=== PATIENT | male | born 1995 | race Caucasian/White ===

== ENCOUNTER 2016-04-03 16:07 | Emergency (ER) | payer OTHER ==
[2016-04-03] MEDS ORDERED: LORazepam 1 MG TAB As Ordered ONE ×2 (17:25→21:38)
[2016-04-03 17:43] LABS: MEAN CORPUSCULAR HEMOGLOBIN 29.3 pg (27.0-33.0); MEAN CORPUSCULAR VOLUME 86.3 fl (80.0-96.0); RED CELL DISTRIBUTION WIDTH 12.1 % (11.5-14.5); WHITE BLOOD COUNT 7.3 K/mm3 (4.0-10.0)
[2016-04-03 18:01] LABS: AMPHETAMINES LEVEL URINE NEGATIVE (NEGATIVE); BENZODIAZEPINES URINE POSITIVE (NEGATIVE); COCAINE METABOLITE URINE NEGATIVE (NEGATIVE); CONTROL LINE INT CTR LINE PRESENT; METHADONE URINE NEGATIVE (NEGATIVE); OPIATES URINE NEGATIVE (NEGATIVE); TRICYCLIC ANTIDEPRESS URINE NEGATIVE (NEGATIVE)
[2016-04-03 18:12] LABS: ALBUMIN 4.2 GM/DL (3.2-5.2); ALBUMIN/GLOBULIN RATIO 1.27 (1.00-1.93); ALKALINE PHOSPHATASE 77 U/L (45-117); ALT/SGPT 38 U/L (12-78); ANION GAP 10 MEQ/L (8-16); AST/SGOT 73 U/L (15-37); BILIRUBIN,DIRECT < 0.1 MG/DL (0.0-0.2); BILIRUBIN,TOTAL 0.3 MG/DL (0.2-1.0); BLOOD UREA NITROGEN 10 MG/DL (7-18); CALCIUM LEVEL 9.1 MG/DL (8.5-10.1); CARBON DIOXIDE LEVEL 29 MEQ/L (21-32); CHLORIDE LEVEL 102 MEQ/L (98-107); CREATININE FOR GFR 1.01 MG/DL (0.70-1.30); GLUCOSE, FASTING 95 MG/DL (70-105); POTASSIUM SERUM 3.9 MEQ/L (3.5-5.1); SODIUM LEVEL 141 MEQ/L (136-145); TOTAL PROTEIN 7.5 GM/DL (6.4-8.2)
--- NOTE | 2016-04-03 22:02 | EDDOCDS ---
Nurse's Notes [facility] Name: Scooby Chase Age: 20 yrs Sex: Male : 1995 Arrival Date: 04/03/2016 Time: 16:[address] [facility] Private MD: Other - Complete Info On Cds Diagnosis: Opioid dependence with withdrawal;Major depressive disorder, recurrent Presentation: 04/03 16:12 Presenting complaint: Patient states: "I've been home on leave and I've been struggling jc4 with an Oxycodone withdrawal. I did overdose on Xanax (not prescribed to him) on 04/01. Allegedly took 35 Xanax 0.5 mg on 04/01, because "I couldn't get any Oxy where I was so I threw a fit of rage at my family so I decided to down an entire bottle. My family took me to get admitted for this issue in [place], but I refused". Pt states, "I'm starting to feel a little sick again, a little loopy, a little nauseous". Adult Sepsis Screening: The patient does not have new or worsening altered mentation. Patient's respiratory rate is less than 22. Systolic blood pressure is greater than 100. Patient has a qSOFA score of 0- Negative Sepsis Screen. Suicide/Homicide risk assessment- The patient reports that he/she has not been admitted to an inpatient mental health facility in the last 30 days. The patient reports that he/she has a recent or current history of substance abuse. The patient reports that he/she has no prior history of suicide attempt and/or organized plan. The patient reports that he/she has not experienced a significant life altering event in the last 30 days. The patient reports that he/she has adequate social support. The patient reports he/she has significant chronic medical condition(s). 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 Transition of care: patient was not received from another setting of care. 16:12 Acuity: BATSHEVA Level 3 jc4 16:12 Method Of Arrival: Walkin/Carried/Asstd jc4 16:18 Presenting complaint: Patient states: "I took 1 Suboxone today that my family gave me jc4 to help me get over my sickness". Triage Assessment: 16:17 General: Appears in no apparent distress. jc4 16:18 Pain: Denies pain. Pt Declines HIV testing. jc4 Historical: - Allergies: no known allergies; - Home Meds: 1. Singulair 10 mg Oral tab 1 tab once daily (Last dose: Unknown) 2. ProAir HFA 90 mcg/actuation inhalation HFAA 1 puff every 4 hours as needed (Last dose: Unknown) - PMHx: Asthma; - PSHx: none; - Social history: Smoking status: Chewing Tobacco No barriers to communication noted, The patient speaks fluent Indian. - Family history: Not pertinent. - : The pt / caregiver states he / she is not on anticoagulants. Home medication list is obtained from the patient. - Exposure Risk Screening:: None identified. Screenin:59 Screening information is obtained from the patient. Fall risk: No risks identified. ml6 Assistance ADL's: requires no assistance with activities of daily living. Abuse/DV Screen: The patient / caregiver reports he/she is: not in a situation that causes fear, pain or injury. Nutritional screening: No deficits noted. Advance Directives: Currently, there is no health care proxy. home support is adequate. Assessment: 16:15 General: Appears in no apparent distress, Behavior is appropriate for age, cooperative. ml6 Pain: Denies pain. Neurological: No deficits noted. Level of Consciousness is awake, alert, Oriented to person, place, time. Cardiovascular: No deficits noted. Capillary refill < 3 seconds is brisk in bilateral fingers toes Heart tones S1 S2 present. Respiratory: No deficits noted. Airway is patent Respiratory effort is even, unlabored, Respiratory pattern is regular, symmetrical, Breath sounds are clear bilaterally. GI: No deficits noted. Abdomen is flat, non- distended Bowel sounds present X 4 quads. 17:05 Reassessment: Patient appears in no apparent distress at this time. Patient denies pain ml6 at this time. General:. 18:01 Reassessment: Patient appears in no apparent distress at this time. Patient denies pain ml6 at this time. Patient states feeling better. patient anxious, asking for his skoal, discussed the tobacco policy with patient and offered nicotine patch, patient refused . 19:51 General: Appears in no apparent distress, comfortable, Behavior is appropriate for age, slm cooperative, quiet. General: pt sitting on stretcher chain of command in room security observing . Neurological: Level of Consciousness is awake, alert, obeys commands. Respiratory: Airway is patent Respiratory effort is even, unlabored. 21:01 General: Appears in no apparent distress, comfortable, Behavior is cooperative. slm General: pt talking on phone Chain of Command remains in room security observing . Respiratory: Airway is patent Respiratory effort is even, unlabored. Derm: Skin is pink, warm & dry. 21:59 General: Appears in no apparent distress, comfortable, Behavior is appropriate for age, slm cooperative, quiet. General: pt d/c home with Chain of command . Respiratory: Airway is patent Respiratory effort is even, unlabored. Derm: Skin is pink, warm & dry. Mental Health Eval: 20:23 Mental health consult is initiated at 20:10. 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 [facility] Behavioral Health: The patient is not an established patient of [facility] Behavioral Health. Referral Information: Evaluation referral is generated by [facility] personnel , Corporal Nina. The patient was referred for evaluation because Pt. was home on leave in [place], started withdrawing from Opiate addiction and took overdose of Xanax on 04/01/2016 because he did not have any other substance to take away the pain he was feeling. Pt. mother notified pt. LEATHA and pt. LEATHA picked him up and brought him to ER for evaluation.. Subjective: The patients chief complaint is Pt. reports he has had an opiate addiction worsening over last six months, stating that he was prescribed Percocet after wisdom teeth removal that resulted in a fractured jaw. Pt. reports that since then he has also used cocaine and has mixed other drugs. He states he took Suboxone today and last two days to help him to feel better but that it is not working. Pt. reports that two weeks ago his girlfriend broke up with him because of his drug use and because he has been acting like a monster towards everyone because of this addiction. He reports since break up , he has used even more drugs than usual. When asked if the overdose of Xanax that he took was an attempt to kill himself, he stated he did not know. Pt. also reports that he is very unhappy in the and that it was a big mistake, wishing he had never joined. Pt. states he wants to be clean and not feel this way anymore. He denies SI.. 20:59 Subjective: The patients chief complaint is Pt. does deny SI at this time.. Delusions ms are denied. Patient's mood is appropriate. Hallucinations are denied. Mental Health history: no relevant mental health problems or treatments. Mental Health Admissions: None. Current Outpatient Mental Health Services: None. Current living environment is The patient [facility]. Patient presents to Emergency Department with the following symptoms within the past 2 weeks: anger, drug abuse. Substance abuse: Patient uses beer, 3 daily. Patient uses cocaine, Patient uses marijuana Last use was 1 days ago. Patient uses opiates. Mental status exam: Patients appearance is unkempt, Patient's behavior is cooperative, Speech is normal. Affect is appropriate. Mood is anxious. Hallucinations are denied. Appetite is normal. Memory is good. Energy level is normal. Content of thought is normal. Thought process is intact. Cognitive level is oriented to person, place, time and situation Patient's insight is good. Judgement is fair. Rapport with interviewer is good. Suicidal Ideation is denied. Homicidal ideation is denied. Disposition: Medically cleared for disposition by Conner Riddle DO Psychiatric Consult is performed by phone with Dr Fritz Prather. 21:21 Narrative: Per , pt. to be under observation by [facility] personnel for ms until seen at [facility]. Cpl. Nina aware and in agreement. Vital Signs: 16:10 BP 162 / 89; Pulse 97; Resp 18 S; Temp 97.5(O); Pulse Ox 100% on R/A; Weight 77.11 kg gr2 (R); Height 5 ft. 11 in. (180.34 cm) (R); Pain 2/10; 19:52 BP 137 / 84; Pulse 86; Resp 16; Temp 96.1(T); Pulse Ox 98% on R/A; Pain 0/10; slm 21:58 BP 140 / 97; Pulse 72; Resp 18; Pulse Ox 100% on R/A; Pain 0/10; slm 16:10 Body Mass Index 23.71 (77.11 kg, 180.34 cm) gr2 Vitals: 16:10 Log In Time: April 03, 2016 at 16:10. gr2 16:11 RN notified that patient meets Red Flag criteria. gr2 ED Course: 16:09 Patient visited by Allie Pitt. gr2 16:09 Other - Complete Info On Cds is Private Physician. gr2 16:09 Patient moved to Waiting gr2 16:11 Patient visited by Allie Pitt. gr2 16:11 Patient moved to Pre RCE gr2 16:16 Triage Initiated jc4 16:30 Patient moved to [facility] jc4 16:31 Ivonne Brock MD is Attending Physician. ml 16:31 Patient visited by Ivonne Brock MD. ml 16:56 Patient visited by Cuauhtemoc Quiñones. dpm 16:56 Pt greeted and oriented to ED. Patient advised of names of staff involved in care, dpm location of call araya, wait times and NPO status. Patient has correct armband on for positive identification. Placed in gown. Placed in psych safe attire. Bed in low position. Security observing. Property removed, inventory done, secured in belongings bag- placed in locked locker. Placed in locker 2. Psych Safety Check: Location: Psych Room. Visual Assessment: Cooperative. 17:11 Patient visited by Cuauhtemoc Quiñones. dpm 17:26 Patient visited by Cuauhtemoc Quiñones. dpm 17:27 EKG done. (by ED staff). Reviewed by Ivonne Brock MD. dem1 17:28 Patient visited by Lillie Chopra. dem1 17:35 Acetaminophen Level Sent. nb2 17:35 Basic Metabolic Profile Sent. nb2 17:35 Complete Blood Count Sent. nb2 17:35 Drug Eval Toxicology ED Only Sent. nb2 17:35 Ethyl Alcohol (ethanol) Sent. nb2 17:36 Liver Profile Sent. nb2 17:36 Salicylate Level Sent. nb2 17:36 Thyroid Stimulating Hormone Sent. nb2 17:42 Patient visited by Cuauhtemoc Quiñones. dpm 17:59 The patient / caregiver is instructed regarding the plan of care and ED course. ml6 18:16 Patient visited by Conner Gamboa RN. ml6 18:16 Patient visited by Cuauhtemoc Quiñones. dpm 18:33 Patient visited by Cuauhtemoc Quiñones. dpm 18:45 Patient visited by Cuauhtemoc Quiñones. dpm 18:58 Gregoria Walter LPN is Primary Nurse. slm 18:59 Patient visited by Cuauhtemoc Quiñones. dpm 19:20 Attending Physician role handed off by Ivonne Brock MD mm11 19:20 Conner Riddle DO is Attending Physician. mm11 19:21 Patient visited by Cuauhtemoc Quiñones. dpm 19:44 Patient visited by Teo Candelaria. tr 19:52 Patient visited by Gregoria Walter LPN. slm 20:00 Patient visited by Teo Candelaria. tr 20:14 Patient visited by Teo Candelaria. tr 20:14 [facility] Payment Agreement was scanned into [employer] and attached to record. gjb 20:38 Patient visited by Teo Candelaria. tr 20:45 Patient visited by Teo Candelaria. tr 21:02 Patient visited by Gregoria Walter LPN. slm 21:31 Patient visited by Teo Candelaria. tr 21:35 Alyson Louis [facility] is Referral Physician. mm11 21:48 Patient visited by Teo Candelaria. tr 22:00 Patient visited by Teo Candelaria. tr 22:00 No IV's were initiated during this patient's visit. No procedures done that require slm assistance. 22:01 Patient visited by Gregoria Walter LPN. slm Administered Medications: 17:36 Drug: LORazepam 1 mg [lorazepam 1 mg tablet (1 tabs)] Route: PO; ml6 22:01 Follow up: Response: Anxiety is improved slm 21:39 Not Given (Physician Discretion): LORazepam 1 mg PO once mm11 Order Results: Lab Order: Acetaminophen Level; SPEC'M 04/03/16 17:30 Test: ACETAMINOPHEN LEVEL; Value: < 2.0; Range: 10.0-30.0; Abnormal: Below low normal; Units: UG/ML; Status: F Lab Order: Basic Metabolic Profile; SPEC'M 04/03/16 17:30 Test: GLUCOSE, FASTING; Value: 95; Range: 70-105; Units: MG/DL; Status: F Test: BLOOD UREA NITROGEN; Value: 10; Range: 7-18; Units: MG/DL; Status: F Test: CREATININE FOR GFR; Value: 1.01; Range: 0.70-1.30; Units: MG/DL; Status: F Test: SODIUM LEVEL; Value: 141; Range: 136-145; Units: MEQ/L; Status: F Test: POTASSIUM SERUM; Value: 3.9; Range: 3.5-5.1; Units: MEQ/L; Status: F Test: CHLORIDE LEVEL; Value: 102; Range: 98-107; Units: MEQ/L; Status: F Test: CARBON DIOXIDE LEVEL; Value: 29; Range: 21-32; Units: MEQ/L; Status: F Test: ANION GAP; Value: 10; Range: 8-16; Units: MEQ/L; Status: F Test: CALCIUM LEVEL; Value: 9.1; Range: 8.5-10.1; Units: MG/DL; Status: F Lab Order: Complete Blood Count; SPEC'M 04/03/16 17:30 Test: WHITE BLOOD COUNT; Value: 7.3; Range: 4.0-10.0; Units: K/mm3; Status: F Test: RED BLOOD COUNT; Value: 4.90; Range: 4.30-6.10; Units: M/mm3; Status: F Test: HEMOGLOBIN; Value: 14.4; Range: 14.0-18.0; Units: g/dl; Status: F Test: HEMATOCRIT; Value: 42.3; Range: 42.0-52.0; Units: %; Status: F Test: MEAN CORPUSCULAR VOLUME; Value: 86.3; Range: 80.0-96.0; Units: fl; Status: F Test: MEAN CORPUSCULAR HEMOGLOBIN; Value: 29.3; Range: 27.0-33.0; Units: pg; Status: F Test: MEAN CORPUSCULAR HGB CONC; Value: 34.0; Range: 32.0-36.5; Units: g/dl; Status: F Test: RED CELL DISTRIBUTION WIDTH; Value: 12.1; Range: 11.5-14.5; Units: %; Status: F Test: PLATELET COUNT, AUTOMATED; Value: 182; Range: 150-450; Units: k/mm3; Status: F Lab Order: Drug Eval Toxicology ED Only; SPEC'M 04/03/16 17:28 Test: AMPHETAMINES LEVEL URINE; Value: NEGATIVE; Range: NEGATIVE; Status: F Test: BARBITURATES URINE; Value: NEGATIVE; Range: NEGATIVE; Status: F Test: BENZODIAZEPINES URINE; Value: POSITIVE; Range: NEGATIVE; Abnormal: Above high normal; Status: F Test: CANNABINOIDS URINE; Value: POSITIVE; Range: NEGATIVE; Abnormal: Above high normal; Status: F Test: COCAINE METABOLITE URINE; Value: NEGATIVE; Range: NEGATIVE; Status: F Test: METHADONE URINE; Value: NEGATIVE; Range: NEGATIVE; Status: F Test: OPIATES URINE; Value: NEGATIVE; Range: NEGATIVE; Status: F Test: TRICYCLIC ANTIDEPRESS URINE; Value: NEGATIVE; Range: NEGATIVE; Status: F Test Note: ; FALSE POSITIVE RESULTS CAN BE CAUSED BY THE USE OF PANTOPRAZOLE (PROTONIX). Lab Order: Ethyl Alcohol (ethanol); SPEC'M 04/03/16 17:30 Test: ETHYL ALCOHOL (ETHANOL); Value: < 0.003; Range: 0.000-0.010; Units: %; Status: F Lab Order: Liver Profile; SPEC'M 04/03/16 17:30 Test: AST/SGOT; Value: 73; Range: 15-37; Abnormal: Above high normal; Units: U/L; Status: F Test: ALT/SGPT; Value: 38; Range: 12-78; Units: U/L; Status: F Test: ALKALINE PHOSPHATASE; Value: 77; Range: 45-117; Units: U/L; Status: F Test: BILIRUBIN,TOTAL; Value: 0.3; Range: 0.2-1.0; Units: MG/DL; Status: F Test: BILIRUBIN,DIRECT; Value: < 0.1; Range: 0.0-0.2; Units: MG/DL; Status: F Test: TOTAL PROTEIN; Value: 7.5; Range: 6.4-8.2; Units: GM/DL; Status: F Test: ALBUMIN; Value: 4.2; Range: 3.2-5.2; Units: GM/DL; Status: F Test: ALBUMIN/GLOBULIN RATIO; Value: 1.27; Range: 1.00-1.93; Status: F Lab Order: Salicylate Level; SPEC'M 04/03/16 17:30 Test: SALICYLATE LEVEL; Value: < 1.7; Range: 5.0-30.0; Abnormal: Below low normal; Units: MG/DL; Status: F Lab Order: Thyroid Stimulating Hormone; SPEC'M 04/03/16 17:30 Test: THYROID STIMULATING HORMONE; Value: 2.420; Range: 0.463-3.98; Units: uIU/ML; Status: F Outcome: 21:36 Discharge ordered by Provider. mm11 21:59 Discharge Assessment: Patient awake, alert and oriented x 3. No cognitive and/or slm functional deficits noted. Patient verbalized understanding of disposition instructions. patient administered narcotics - no. The following High Risk Discharge criteria are identified: Yes, pt seen by and PSA. Discharged to home with chain of command. Condition: good. Discharge instructions given to patient, Instructed on discharge instructions, follow up and referral plans. Demonstrated understanding of instructions, Pt was receptive of discharge instructions/ teaching. No special radiology studies were completed. 22:01 Patient left the ED. slm Signatures: Ivonne Brock MD MD ml Stone, Mary, BIANCA PSA Teo Denis Matthew, DO DO mm11 Conner Gamboa, RN RN ml6 Denise Patel RN RN jc4 Lillie Chopra1 Cuauhtemoc Quiñones dpAllie Catherine gr2 Gregoria Walter LPN LPN slm Beck, Gabriela gjb Baart, Nicole nb2 Corrections: (The following items were deleted from the chart) 21:05 20:23 Subjective: The patients chief complaint is Pt. reports he has had an opiate ms addiction worsening over last six months, stating that he was prescribed Percocet after wisdom teeth removal that resulted in a fractured jaw. Pt. reports that since then he has also used cocaine and has mixed other drugs. He states he took Suboxone today and last two days to help him to feel better but that it is not working. Pt. reports that two weeks ago his girlfriend broke up with him because of his drug use and because he has been acting like a monster towards everyone because of this addiction. He reports since break up , he has used even more drugs than usual. When asked if the overdose of Xanax that he took was an attempt to kill himself, he stated he did not know. Pt. also reports that he is very unhappy in the and that it was a big mistake, wishing he had never joined. Pt. is unable to contract for safety, stating he does not know what he will do if he does not get some help. . ms 21:17 20:23 Subjective: The patients chief complaint is Pt. reports he has had an opiate ms addiction worsening over last six months, stating that he was prescribed Percocet after wisdom teeth removal that resulted in a fractured jaw. Pt. reports that since then he has also used cocaine and has mixed other drugs. He states he took Suboxone today and last two days to help him to feel better but that it is not working. Pt. reports that two weeks ago his girlfriend broke up with him because of his drug use and because he has been acting like a monster towards everyone because of this addiction. He reports since break up , he has used even more drugs than usual. When asked if the overdose of Xanax that he took was an attempt to kill himself, he stated he did not know. Pt. also reports that he is very unhappy in the and that it was a big mistake, wishing he had never joined. Pt. states he wants to be clean and not feel this way anymore.. ms MTDD
--- NOTE | 2016-04-03 22:02 | EDDOCDS ---
Physician Documentation [facility] Name: Scooby Chase Age: 20 yrs Sex: Male : 1995 Arrival Date: 04/03/2016 Time: 16:07 Bed U2 Private MD: Other - Complete Info On Cds Disposition: 04/03/16 21:36 Discharged to Home/Self Care. Impression: Opioid dependence with withdrawal, Major depressive disorder, recurrent. - Condition is Stable. - Discharge Instructions: Chemical Dependency, Opioid Withdrawal, Opioid Use Disorder. - Medication Reconciliation, Local Pharmacy Hours form. - Follow up: Alyson Louis [facility]; When: 1 - 2 days; Reason: Continuance of care. - Problem is an ongoing problem. - Symptoms have improved. - Notes: FOLLOW UP WITH [facility] DIRECTED BY CHAIN OF COMMAND ON TUESDAY. Historical: - Allergies: no known allergies; - Home Meds: 1. Singulair 10 mg Oral tab 1 tab once daily (Last dose: Unknown) 2. ProAir HFA 90 mcg/actuation inhalation HFAA 1 puff every 4 hours as needed (Last dose: Unknown) - PMHx: Asthma; - PSHx: none; - Social history: Smoking status: Chewing Tobacco No barriers to communication noted, The patient speaks fluent Surinamese. - Family history: Not pertinent. - : The pt / caregiver states he / she is not on anticoagulants. Home medication list is obtained from the patient. - Exposure Risk Screening:: None identified. Vital Signs: 04/03 16:10 BP 162 / 89; Pulse 97; Resp 18 S; Temp 97.5(O); Pulse Ox 100% on R/A; Weight 77.11 kg / gr2 170 lbs (R); Height 5 ft. 11 in. (180.34 cm) (R); Pain 2/10; 19:52 BP 137 / 84; Pulse 86; Resp 16; Temp 96.1(T); Pulse Ox 98% on R/A; Pain 0/10; slm 21:58 BP 140 / 97; Pulse 72; Resp 18; Pulse Ox 100% on R/A; Pain 0/10; slm 16:10 Body Mass Index 23.71 (77.11 kg, 180.34 cm) gr2 MDM: 16:39 Consult PFS/PSA/[employer] T[employer] Curer ordered. ml 16:39 Consult PFS/PSA/[employer] Curer: Patient's case requires discussion with on-call ml Psychiatrist ordered. 16:39 PSA/PFS to call Nursing Drawer In Hand, to enter patient data on [place] Safe Act if patient ml involuntarily admitted or transferred for SI or HI ordered. 16:39 Confirm accurate psychiatric medication list and times of last dosage ordered. ml 16:39 Detain Pt Until Medically/PFS Cleared ordered. ml 16:39 Call Poison Control ordered. ml 16:39 LORazepam 1 mg PO once ordered. ml 16:39 Acetaminophen Level Ordered. EDMS 16:39 Basic Metabolic Profile Ordered. EDMS 16:39 Complete Blood Count Ordered. EDMS 16:39 Drug Eval Toxicology ED Only Ordered. EDMS 16:39 Ethyl Alcohol (ethanol) Ordered. EDMS 16:39 Liver Profile Ordered. EDMS 16:40 Salicylate Level Ordered. EDMS 16:40 Thyroid Stimulating Hormone Ordered. EDMS 16:40 ECG WITH READING ER PHYS+CARDIAG ordered. EDMS 17:41 REGULAR DIET PLASTIC SONI+DIET ordered. EDMS 18:47 Financial registration complete. gjb 19:08 Acetaminophen Level Reviewed. ml 19:08 Drug Eval Toxicology ED Only Reviewed. ml 19:08 Liver Profile Reviewed. ml 19:08 Salicylate Level Reviewed. ml 19:08 Basic Metabolic Profile Reviewed. ml 19:08 Complete Blood Count Reviewed. ml 19:08 Ethyl Alcohol (ethanol) Reviewed. ml 19:08 Thyroid Stimulating Hormone Reviewed. ml 19:34 Consult PFS/PSA/[employer] Curer complete. ms 19:34 Consult PFS/PSA/Rub[employer] Curer: Patient's case requires discussion with on-call ms Psychiatrist complete. 19:34 PSA/PFS to call Nursing Drawer In Hand, to enter patient data [place] Safe [place] if patient ms involuntarily admitted or transferred for SI or HI complete. 20:14 [facility] Payment Agreement was scanned into [employer] and attached to record. gjb 21:35 LORazepam 1 mg PO once ordered. mm11 Administered Medications: 17:36 Drug: LORazepam 1 mg [lorazepam 1 mg tablet (1 tabs)] Route: PO; ml6 22:01 Follow up: Response: Anxiety is improved slm 21:39 Not Given (Physician Discretion): LORazepam 1 mg PO once mm11 Signatures: Dispatcher [employer] EDMS Ivonne Brock MD MD ml Stone, Mary, PSA PSA ms Venkatesh Conner, DO DO mm11 Denise Patel, KEVAN RN jc4 Gregoria Walter LPN LPN Magdalena Mccormick Matthew RN ml6 The chart was reviewed and I authenticate all verbal orders and agree with the evaluation and treatment provided.Attachments: 20:14 [facility] Payment Agreement aiyana MTDD
--- NOTE | 2016-04-03 23:06 | ECGEPIP ---
Stationary ECG Study [facility] - ED Test Date: 2016-04-03 Pat Name: KOLBY QUEZADA Department: Room: - Gender: M [employer] [place] Shearer: saeed : 1995 Requested By: Ivonne Brock Order Number: [id number] Reading MD: Mehdi Duarte Measurements Intervals [place] Rate: 61 P: 61 [place]: 130 QRS: 38 QRSD: 98 T: -1 QT: 388 QTc: 392 Interpretive Statements SINUS RHYTHM WITH OCCASIONAL SUPRAVENTRICULAR PREMATURE COMPLEXES NSTTW ABNORMALITIES NO PRIORS Electronically Signed On 04-03-2016 23:05:32 EST by Mehdi Duarte
--- NOTE | 2016-04-06 11:53 | EDDOCDS ---
Physician Documentation [facility] Name: Scooby Chase Age: 20 yrs Sex: Male : 1995 Arrival Date: 04/03/2016 Time: 16:07 Bed U2 Private MD: Other - Complete Info On Cds Disposition: 04/03/16 21:36 Discharged to Home/Self Care. Impression: Opioid dependence with withdrawal, Major depressive disorder, recurrent. - Condition is Stable. - Discharge Instructions: Chemical Dependency, Opioid Withdrawal, Opioid Use Disorder. - Medication Reconciliation, Local Pharmacy Hours form. - Follow up: Alyson Louis [facility]; When: 1 - 2 days; Reason: Continuance of care. - Problem is an ongoing problem. - Symptoms have improved. - Notes: FOLLOW UP WITH [facility] DIRECTED BY CHAIN OF COMMAND ON TUESDAY. Historical: - Allergies: no known allergies; - Home Meds: 1. Singulair 10 mg Oral tab 1 tab once daily (Last dose: Unknown) 2. ProAir HFA 90 mcg/actuation inhalation HFAA 1 puff every 4 hours as needed (Last dose: Unknown) - PMHx: Asthma; - PSHx: none; - Social history: Smoking status: Chewing Tobacco No barriers to communication noted, The patient speaks fluent Ukrainian. - Family history: Not pertinent. - : The pt / caregiver states he / she is not on anticoagulants. Home medication list is obtained from the patient. - Exposure Risk Screening:: None identified. Vital Signs: 04/03 16:10 BP 162 / 89; Pulse 97; Resp 18 S; Temp 97.5(O); Pulse Ox 100% on R/A; Weight 77.11 kg / gr2 170 lbs (R); Height 5 ft. 11 in. (180.34 cm) (R); Pain 2/10; 19:52 BP 137 / 84; Pulse 86; Resp 16; Temp 96.1(T); Pulse Ox 98% on R/A; Pain 0/10; slm 21:58 BP 140 / 97; Pulse 72; Resp 18; Pulse Ox 100% on R/A; Pain 0/10; slm 16:10 Body Mass Index 23.71 (77.11 kg, 180.34 cm) gr2 MDM: 16:39 Consult PFS/PSA/Maintenance Job Titles ordered. ml 16:39 Consult PFS/PSA/Maintenance Job Titles: Patient's case requires discussion with on-call ml Psychiatrist ordered. 16:39 PSA/PFS to call Nursing Load Dropper, to enter patient data on [place] Safe [place] if patient ml involuntarily admitted or transferred for SI or HI ordered. 16:39 Confirm accurate psychiatric medication list and times of last dosage ordered. ml 16:39 Detain Pt Until Medically/PFS Cleared ordered. ml 16:39 Call Poison Control ordered. ml 16:39 LORazepam 1 mg PO once ordered. ml 16:39 Acetaminophen Level Ordered. EDMS 16:39 Basic Metabolic Profile Ordered. EDMS 16:39 Complete Blood Count Ordered. EDMS 16:39 Drug Eval Toxicology ED Only Ordered. EDMS 16:39 Ethyl Alcohol (ethanol) Ordered. EDMS 16:39 Liver Profile Ordered. EDMS 16:40 Salicylate Level Ordered. EDMS 16:40 Thyroid Stimulating Hormone Ordered. EDMS 16:40 ECG WITH READING ER PHYS+CARDIAG ordered. EDMS 17:41 REGULAR DIET PLASTIC SONI+DIET ordered. EDMS 18:47 Financial registration complete. gjb 19:08 Acetaminophen Level Reviewed. ml 19:08 Drug Eval Toxicology ED Only Reviewed. ml 19:08 Liver Profile Reviewed. ml 19:08 Salicylate Level Reviewed. ml 19:08 Basic Metabolic Profile Reviewed. ml 19:08 Complete Blood Count Reviewed. ml 19:08 Ethyl Alcohol (ethanol) Reviewed. ml 19:08 Thyroid Stimulating Hormone Reviewed. ml 19:34 Consult PFS/PSA/Maintenance Job Titles complete. ms 19:34 Consult PFS/PSA/Maintenance Job Titles: Patient's case requires discussion with on-call ms Psychiatrist complete. 19:34 PSA/PFS to call Nursing Load Dropper, to enter patient data [place] Safe [place] if patient ms involuntarily admitted or transferred for SI or HI complete. 20:14 [facility] Payment Agreement was scanned into [employer] and attached to record. gjb 21:35 LORazepam 1 mg PO once ordered. mm11 04/04 07:59 T-Sheet-- Draft Copy was scanned into [employer] and attached to record. seh 10:40 ECG/EKG was scanned into [employer] and attached to record. gb Administered Medications: 04/03 17:36 Drug: LORazepam 1 mg [lorazepam 1 mg tablet (1 tabs)] Route: PO; ml6 22:01 Follow up: Response: Anxiety is improved [facility] 21:39 Not Given (Physician Discretion): LORazepam 1 mg PO once mm11 Signatures: Dispatcher [employer] EDIvonne Marlow MD MD ml Stone, Nilsa, PSA PSA ms Rashaad, Lena, Reg Reg Conner Diehl, DO DO mm11 Denise Patel RN RN jc4 Gregoria Walter,SAMPLE TESTER GRINDER SAMPLE TESTER GRINDER Magdalena Mccormick Sarah seh Lowe, Matthew RN ml6 The chart was reviewed and I authenticate all verbal orders and agree with the evaluation and treatment provided.Attachments: 20:14 [facility] Payment Agreement gjb 04/04 07:59 T-Sheet-- Draft Copy [facility] 10:40 ECG/EKG Chart Complete MTDD
--- NOTE | 2016-04-06 11:53 | EDDOCDS ---
Nurse's Notes [facility] Name: Scooby Quezada Age: 20 yrs Sex: Male : 1995 Arrival Date: 04/03/2016 Time: 16:07 [facility] Private MD: Other - Complete Info On Cds Diagnosis: Opioid dependence with withdrawal;Major depressive disorder, recurrent Presentation: 04/03 16:12 Presenting complaint: Patient states: "I've been home on leave and I've been struggling jc4 with an Oxycodone withdrawal. I did overdose on Xanax (not prescribed to him) on 04/01. Allegedly took 35 Xanax 0.5 mg on 04/01, because "I couldn't get any Oxy where I was so I threw a fit of rage at my family so I decided to down an entire bottle. My family took me to get admitted for this issue in [place], but I refused". Pt states, "I'm starting to feel a little sick again, a little loopy, a little nauseous". Adult Sepsis Screening: The patient does not have new or worsening altered mentation. Patient's respiratory rate is less than 22. Systolic blood pressure is greater than 100. Patient has a qSOFA score of 0- Negative Sepsis Screen. Suicide/Homicide risk assessment- The patient reports that he/she has not been admitted to an inpatient mental health facility in the last 30 days. The patient reports that he/she has a recent or current history of substance abuse. The patient reports that he/she has no prior history of suicide attempt and/or organized plan. The patient reports that he/she has not experienced a significant life altering event in the last 30 days. The patient reports that he/she has adequate social support. The patient reports he/she has significant chronic medical condition(s). 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 Transition of care: patient was not received from another setting of care. 16:12 Acuity: BATSHEVA Level 3 jc4 16:12 Method Of Arrival: Walkin/Carried/Asstd jc4 16:18 Presenting complaint: Patient states: "I took 1 Suboxone today that my family gave me jc4 to help me get over my sickness". Triage Assessment: 16:17 General: Appears in no apparent distress. jc4 16:18 Pain: Denies pain. Pt Declines HIV testing. jc4 Historical: - Allergies: no known allergies; - Home Meds: 1. Singulair 10 mg Oral tab 1 tab once daily (Last dose: Unknown) 2. ProAir HFA 90 mcg/actuation inhalation HFAA 1 puff every 4 hours as needed (Last dose: Unknown) - PMHx: Asthma; - PSHx: none; - Social history: Smoking status: Chewing Tobacco No barriers to communication noted, The patient speaks fluent Palauan. - Family history: Not pertinent. - : The pt / caregiver states he / she is not on anticoagulants. Home medication list is obtained from the patient. - Exposure Risk Screening:: None identified. Screenin:59 Screening information is obtained from the patient. Fall risk: No risks identified. ml6 Assistance ADL's: requires no assistance with activities of daily living. Abuse/DV Screen: The patient / caregiver reports he/she is: not in a situation that causes fear, pain or injury. Nutritional screening: No deficits noted. Advance Directives: Currently, there is no health care proxy. home support is adequate. Assessment: 16:15 General: Appears in no apparent distress, Behavior is appropriate for age, cooperative. ml6 Pain: Denies pain. Neurological: No deficits noted. Level of Consciousness is awake, alert, Oriented to person, place, time. Cardiovascular: No deficits noted. Capillary refill < 3 seconds is brisk in bilateral fingers toes Heart tones S1 S2 present. Respiratory: No deficits noted. Airway is patent Respiratory effort is even, unlabored, Respiratory pattern is regular, symmetrical, Breath sounds are clear bilaterally. GI: No deficits noted. Abdomen is flat, non- distended Bowel sounds present X 4 quads. 17:05 Reassessment: Patient appears in no apparent distress at this time. Patient denies pain ml6 at this time. General:. 18:01 Reassessment: Patient appears in no apparent distress at this time. Patient denies pain ml6 at this time. Patient states feeling better. patient anxious, asking for his skoal, discussed the tobacco policy with patient and offered nicotine patch, patient refused . 19:51 General: Appears in no apparent distress, comfortable, Behavior is appropriate for age, slm cooperative, quiet. General: pt sitting on stretcher chain of command in room security observing . Neurological: Level of Consciousness is awake, alert, obeys commands. Respiratory: Airway is patent Respiratory effort is even, unlabored. 21:01 General: Appears in no apparent distress, comfortable, Behavior is cooperative. slm General: pt talking on phone Chain of Command remains in room security observing . Respiratory: Airway is patent Respiratory effort is even, unlabored. Derm: Skin is pink, warm & dry. 21:59 General: Appears in no apparent distress, comfortable, Behavior is appropriate for age, slm cooperative, quiet. General: pt d/c home with Chain of command . Respiratory: Airway is patent Respiratory effort is even, unlabored. Derm: Skin is pink, warm & dry. Mental Health Eval: 20:23 Mental health consult is initiated at 20:10. 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 [facility] Behavioral Health: The patient is not an established patient of [facility] Behavioral Health. Referral Information: Evaluation referral is generated by [facility] personnel , Corporal Sergio. The patient was referred for evaluation because Pt. was home on leave in [place], started withdrawing from Opiate addiction and took overdose of Xanax on 04/01/2016 because he did not have any other substance to take away the pain he was feeling. Pt. mother notified pt. LEATHA and pt. LEATHA picked him up and brought him to ER for evaluation.. Subjective: The patients chief complaint is Pt. reports he has had an opiate addiction worsening over last six months, stating that he was prescribed Percocet after wisdom teeth removal that resulted in a fractured jaw. Pt. reports that since then he has also used cocaine and has mixed other drugs. He states he took Suboxone today and last two days to help him to feel better but that it is not working. Pt. reports that two weeks ago his girlfriend broke up with him because of his drug use and because he has been acting like a monster towards everyone because of this addiction. He reports since break up , he has used even more drugs than usual. When asked if the overdose of Xanax that he took was an attempt to kill himself, he stated he did not know. Pt. also reports that he is very unhappy in the and that it was a big mistake, wishing he had never joined. Pt. states he wants to be clean and not feel this way anymore. He denies SI.. 20:59 Subjective: The patients chief complaint is Pt. does deny SI at this time.. Delusions ms are denied. Patient's mood is appropriate. Hallucinations are denied. Mental Health history: no relevant mental health problems or treatments. Mental Health Admissions: None. Current Outpatient Mental Health Services: None. Current living environment is The patient currently lives in a [facility]. Patient presents to Emergency Department with the following symptoms within the past 2 weeks: anger, drug abuse. Substance abuse: Patient uses beer, 3 daily. Patient uses cocaine, Patient uses marijuana Last use was 1 days ago. Patient uses opiates. Mental status exam: Patients appearance is unkempt, Patient's behavior is cooperative, Speech is normal. Affect is appropriate. Mood is anxious. Hallucinations are denied. Appetite is normal. Memory is good. Energy level is normal. Content of thought is normal. Thought process is intact. Cognitive level is oriented to person, place, time and situation Patient's insight is good. Judgement is fair. Rapport with interviewer is good. Suicidal Ideation is denied. Homicidal ideation is denied. Disposition: Medically cleared for disposition by Conner Riddle DO Psychiatric Consult is performed by phone with Dr Fritz Prather. 21:21 Narrative: Per , pt. to be under observation by [facility] personnel for ms until seen at [facility]. Cpl. Sergio aware and in agreement. Vital Signs: 16:10 BP 162 / 89; Pulse 97; Resp 18 S; Temp 97.5(O); Pulse Ox 100% on R/A; Weight 77.11 kg gr2 (R); Height 5 ft. 11 in. (180.34 cm) (R); Pain 2/10; 19:52 BP 137 / 84; Pulse 86; Resp 16; Temp 96.1(T); Pulse Ox 98% on R/A; Pain 0/10; slm 21:58 BP 140 / 97; Pulse 72; Resp 18; Pulse Ox 100% on R/A; Pain 0/10; slm 16:10 Body Mass Index 23.71 (77.11 kg, 180.34 cm) gr2 Vitals: 16:10 Log In Time: April 03, 2016 at 16:10. gr2 16:11 RN notified that patient meets Red Flag criteria. gr2 ED Course: 16:09 Patient visited by Allie Pitt. gr2 16:09 Other - Complete Info On Cds is Private Physician. gr2 16:09 Patient moved to Waiting gr2 16:11 Patient visited by Allie Pitt. gr2 16:11 Patient moved to Pre RCE gr2 16:16 Triage Initiated jc4 16:30 Patient moved to [facility] jc4 16:31 Ivonne Brock MD is Attending Physician. ml 16:31 Patient visited by Ivonne Brock MD. ml 16:56 Patient visited by Cuauhtemoc Quiñones. dpm 16:56 Pt greeted and oriented to ED. Patient advised of names of staff involved in care, dpm location of call araya, wait times and NPO status. Patient has correct armband on for positive identification. Placed in gown. Placed in psych safe attire. Bed in low position. Security observing. Property removed, inventory done, secured in belongings bag- placed in locked locker. Placed in locker 2. Psych Safety Check: Location: Psych Room. Visual Assessment: Cooperative. 17:11 Patient visited by Cuauhtemoc Quiñnoes. dpm 17:26 Patient visited by Cuauhtemoc Quiñones. dpm 17:27 EKG done. (by ED staff). Reviewed by Ivonne Brock MD. dem1 17:28 Patient visited by Lillie Chopra. dem1 17:35 Acetaminophen Level Sent. nb2 17:35 Basic Metabolic Profile Sent. nb2 17:35 Complete Blood Count Sent. nb2 17:35 Drug Eval Toxicology ED Only Sent. nb2 17:35 Ethyl Alcohol (ethanol) Sent. nb2 17:36 Liver Profile Sent. nb2 17:36 Salicylate Level Sent. nb2 17:36 Thyroid Stimulating Hormone Sent. nb2 17:42 Patient visited by Cuauhtemoc Quiñones. dpm 17:59 The patient / caregiver is instructed regarding the plan of care and ED course. ml6 18:16 Patient visited by Conner Gamboa RN. ml6 18:16 Patient visited by Cuauhtemoc Quiñones. dpm 18:33 Patient visited by Cuauhtemoc Quiñones. dpm 18:45 Patient visited by Cuauhtemoc Quiñones. dpm 18:58 Gregoria Walter LPN is Primary Nurse. slm 18:59 Patient visited by Cuauhtemoc Quiñones. dpm 19:20 Attending Physician role handed off by Ivonne Brock MD mm11 19:20 Conner Riddle DO is Attending Physician. mm11 19:21 Patient visited by Cuauhtemoc Quiñones. dpm 19:44 Patient visited by Teo Candelaria. tr 19:52 Patient visited by Gregoria Walter LPN. slm 20:00 Patient visited by Teo Candelaria. tr 20:14 Patient visited by Teo Candelaria. tr 20:14 [facility] Payment Agreement was scanned into Infer and attached to record. gjb 20:38 Patient visited by Teo Candelaria. tr 20:45 Patient visited by Teo Candelaria. tr 21:02 Patient visited by Gregoria Walter LPN. slm 21:31 Patient visited by Teo Candelaria. tr 21:35 Alyson Louis [facility] is Referral Physician. mm11 21:48 Patient visited by Teo Candelaria. tr 22:00 Patient visited by Teo Candelaria. tr 22:00 No IV's were initiated during this patient's visit. No procedures done that require slm assistance. 22:01 Patient visited by Gregoria Walter LPN. slm 23:42 EKG-ADULT Returned. EDMS 04/04 07:59 T-Sheet-- Draft Copy was scanned into Infer and attached to record. se 10:40 ECG/EKG was scanned into Infer and attached to record. gb Administered Medications: 04/03 17:36 Drug: LORazepam 1 mg [lorazepam 1 mg tablet (1 tabs)] Route: PO; ml6 22:01 Follow up: Response: Anxiety is improved slm 21:39 Not Given (Physician Discretion): LORazepam 1 mg PO once mm11 Order Results: Lab Order: Acetaminophen Level; SPEC'M 04/03/16 17:30 Test: ACETAMINOPHEN LEVEL; Value: < 2.0; Range: 10.0-30.0; Abnormal: Below low normal; Units: UG/ML; Status: F Lab Order: Basic Metabolic Profile; SPEC'M 04/03/16 17:30 Test: GLUCOSE, FASTING; Value: 95; Range: 70-105; Units: MG/DL; Status: F Test: BLOOD UREA NITROGEN; Value: 10; Range: 7-18; Units: MG/DL; Status: F Test: CREATININE FOR GFR; Value: 1.01; Range: 0.70-1.30; Units: MG/DL; Status: F Test: SODIUM LEVEL; Value: 141; Range: 136-145; Units: MEQ/L; Status: F Test: POTASSIUM SERUM; Value: 3.9; Range: 3.5-5.1; Units: MEQ/L; Status: F Test: CHLORIDE LEVEL; Value: 102; Range: 98-107; Units: MEQ/L; Status: F Test: CARBON DIOXIDE LEVEL; Value: 29; Range: 21-32; Units: MEQ/L; Status: F Test: ANION GAP; Value: 10; Range: 8-16; Units: MEQ/L; Status: F Test: CALCIUM LEVEL; Value: 9.1; Range: 8.5-10.1; Units: MG/DL; Status: F Lab Order: Complete Blood Count; SPEC'M 04/03/16 17:30 Test: WHITE BLOOD COUNT; Value: 7.3; Range: 4.0-10.0; Units: K/mm3; Status: F Test: RED BLOOD COUNT; Value: 4.90; Range: 4.30-6.10; Units: M/mm3; Status: F Test: HEMOGLOBIN; Value: 14.4; Range: 14.0-18.0; Units: g/dl; Status: F Test: HEMATOCRIT; Value: 42.3; Range: 42.0-52.0; Units: %; Status: F Test: MEAN CORPUSCULAR VOLUME; Value: 86.3; Range: 80.0-96.0; Units: fl; Status: F Test: MEAN CORPUSCULAR HEMOGLOBIN; Value: 29.3; Range: 27.0-33.0; Units: pg; Status: F Test: MEAN CORPUSCULAR HGB CONC; Value: 34.0; Range: 32.0-36.5; Units: g/dl; Status: F Test: RED CELL DISTRIBUTION WIDTH; Value: 12.1; Range: 11.5-14.5; Units: %; Status: F Test: PLATELET COUNT, AUTOMATED; Value: 182; Range: 150-450; Units: k/mm3; Status: F Lab Order: Drug Eval Toxicology ED Only; SPEC'M 04/03/16 17:28 Test: AMPHETAMINES LEVEL URINE; Value: NEGATIVE; Range: NEGATIVE; Status: F Test: BARBITURATES URINE; Value: NEGATIVE; Range: NEGATIVE; Status: F Test: BENZODIAZEPINES URINE; Value: POSITIVE; Range: NEGATIVE; Abnormal: Above high normal; Status: F Test: CANNABINOIDS URINE; Value: POSITIVE; Range: NEGATIVE; Abnormal: Above high normal; Status: F Test: COCAINE METABOLITE URINE; Value: NEGATIVE; Range: NEGATIVE; Status: F Test: METHADONE URINE; Value: NEGATIVE; Range: NEGATIVE; Status: F Test: OPIATES URINE; Value: NEGATIVE; Range: NEGATIVE; Status: F Test: TRICYCLIC ANTIDEPRESS URINE; Value: NEGATIVE; Range: NEGATIVE; Status: F Test Note: ; FALSE POSITIVE RESULTS CAN BE CAUSED BY THE USE OF PANTOPRAZOLE (PROTONIX). Lab Order: Ethyl Alcohol (ethanol); SPEC'M 04/03/16 17:30 Test: ETHYL ALCOHOL (ETHANOL); Value: < 0.003; Range: 0.000-0.010; Units: %; Status: F Lab Order: Liver Profile; SPEC'M 04/03/16 17:30 Test: AST/SGOT; Value: 73; Range: 15-37; Abnormal: Above high normal; Units: U/L; Status: F Test: ALT/SGPT; Value: 38; Range: 12-78; Units: U/L; Status: F Test: ALKALINE PHOSPHATASE; Value: 77; Range: 45-117; Units: U/L; Status: F Test: BILIRUBIN,TOTAL; Value: 0.3; Range: 0.2-1.0; Units: MG/DL; Status: F Test: BILIRUBIN,DIRECT; Value: < 0.1; Range: 0.0-0.2; Units: MG/DL; Status: F Test: TOTAL PROTEIN; Value: 7.5; Range: 6.4-8.2; Units: GM/DL; Status: F Test: ALBUMIN; Value: 4.2; Range: 3.2-5.2; Units: GM/DL; Status: F Test: ALBUMIN/GLOBULIN RATIO; Value: 1.27; Range: 1.00-1.93; Status: F Lab Order: Salicylate Level; SPEC'M 04/03/16 17:30 Test: SALICYLATE LEVEL; Value: < 1.7; Range: 5.0-30.0; Abnormal: Below low normal; Units: MG/DL; Status: F Lab Order: Thyroid Stimulating Hormone; SPEC'M 04/03/16 17:30 Test: THYROID STIMULATING HORMONE; Value: 2.420; Range: 0.463-3.98; Units: uIU/ML; Status: F Radiology Order: EKG-ADULT Test: EKG-ADULT REASON FOR EXAMINATION: od 2 d ago; Stationary ECG Study; [facility] - ED; ; Test Date: 2016-04-03; Pat Name: SCOOBY QUEZADA Department:; Room: -; Gender: M 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 mm11 21:59 Discharge Assessment: Patient awake, alert and oriented x 3. No cognitive and/or slm functional deficits noted. Patient verbalized understanding of disposition instructions. patient administered narcotics - no. The following High Risk Discharge criteria are identified: Yes, pt seen by and PSA. Discharged to home with chain of command. Condition: good. Discharge instructions given to patient, Instructed on discharge instructions, follow up and referral plans. Demonstrated understanding of instructions, Pt was receptive of discharge instructions/ teaching. No special radiology studies were completed. 22:01 Patient left the ED. slm Signatures: Dispatcher [employer] EDMS Ivonne Brock MD MD ml Stone, Mary, BIANCA PSA Lena Babcock, Richard CandelariaTeo Matthew, DO mm11 Conner Gamboa, RN RN ml6 Denise Patel RN RN jc4 Lillie Chopra dem1 Cuauhtemoc Quiñones dpAllie Catherine gr2 Gregoria Walter,DIALYSIS CHIEF EQUIPMENT TECHNICIAN DIALYSIS CHIEF EQUIPMENT TECHNICIAN slm Magdalena Morfin, Bessie Levy2 Corrections: (The following items were deleted from the chart) 21:05 20:23 Subjective: The patients chief complaint is Pt. reports he has had an opiate ms addiction worsening over last six months, stating that he was prescribed Percocet after wisdom teeth removal that resulted in a fractured jaw. Pt. reports that since then he has also used cocaine and has mixed other drugs. He states he took Suboxone today and last two days to help him to feel better but that it is not working. Pt. reports that two weeks ago his girlfriend broke up with him because of his drug use and because he has been acting like a monster towards everyone because of this addiction. He reports since break up , he has used even more drugs than usual. When asked if the overdose of Xanax that he took was an attempt to kill himself, he stated he did not know. Pt. also reports that he is very unhappy in the and that it was a big mistake, wishing he had never joined. Pt. is unable to contract for safety, stating he does not know what he will do if he does not get some help. . ms 21:17 20:23 Subjective: The patients chief complaint is Pt. reports he has had an opiate ms addiction worsening over last six months, stating that he was prescribed Percocet after wisdom teeth removal that resulted in a fractured jaw. Pt. reports that since then he has also used cocaine and has mixed other drugs. He states he took Suboxone today and last two days to help him to feel better but that it is not working. Pt. reports that two weeks ago his girlfriend broke up with him because of his drug use and because he has been acting like a monster towards everyone because of this addiction. He reports since break up , he has used even more drugs than usual. When asked if the overdose of Xanax that he took was an attempt to kill himself, he stated he did not know. Pt. also reports that he is very unhappy in the and that it was a big mistake, wishing he had never joined. Pt. states he wants to be clean and not feel this way anymore.. ms Chart Complete MTDD
--- NOTE | 2016-04-06 11:53 | EDDOCDS ---
Physician Documentation [facility] Name: Scooby Chase Age: 20 yrs Sex: Male : 1995 Arrival Date: 04/03/2016 Time: 16:07 Bed U2 Private MD: Other - Complete Info On Cds Disposition: 04/03/16 21:36 Discharged to Home/Self Care. Impression: Opioid dependence with withdrawal, Major depressive disorder, recurrent. - Condition is Stable. - Discharge Instructions: Chemical Dependency, Opioid Withdrawal, Opioid Use Disorder. - Medication Reconciliation, Local Pharmacy Hours form. - Follow up: Alyson Louis [facility]; When: 1 - 2 days; Reason: Continuance of care. - Problem is an ongoing problem. - Symptoms have improved. - Notes: FOLLOW UP WITH [facility] DIRECTED BY CHAIN OF COMMAND ON TUESDAY. Historical: - Allergies: no known allergies; - Home Meds: 1. Singulair 10 mg Oral tab 1 tab once daily (Last dose: Unknown) 2. ProAir HFA 90 mcg/actuation inhalation HFAA 1 puff every 4 hours as needed (Last dose: Unknown) - PMHx: Asthma; - PSHx: none; - Social history: Smoking status: Chewing Tobacco No barriers to communication noted, The patient speaks fluent German. - Family history: Not pertinent. - : The pt / caregiver states he / she is not on anticoagulants. Home medication list is obtained from the patient. - Exposure Risk Screening:: None identified. Vital Signs: 04/03 16:10 BP 162 / 89; Pulse 97; Resp 18 S; Temp 97.5(O); Pulse Ox 100% on R/A; Weight 77.11 kg / gr2 170 lbs (R); Height 5 ft. 11 in. (180.34 cm) (R); Pain 2/10; 19:52 BP 137 / 84; Pulse 86; Resp 16; Temp 96.1(T); Pulse Ox 98% on R/A; Pain 0/10; slm 21:58 BP 140 / 97; Pulse 72; Resp 18; Pulse Ox 100% on R/A; Pain 0/10; slm 16:10 Body Mass Index 23.71 (77.11 kg, 180.34 cm) gr2 MDM: 16:39 Consult PFS/PSA/Investment Officer ordered. ml 16:39 Consult PFS/PSA/Investment Officer: Patient's case requires discussion with on-call ml Psychiatrist ordered. 16:39 PSA/PFS to call Nursing Hadoop Java Developer, to enter patient data on [place] Safe Act if patient ml involuntarily admitted or transferred for SI or HI ordered. 16:39 Confirm accurate psychiatric medication list and times of last dosage ordered. ml 16:39 Detain Pt Until Medically/PFS Cleared ordered. ml 16:39 Call Poison Control ordered. ml 16:39 LORazepam 1 mg PO once ordered. ml 16:39 Acetaminophen Level Ordered. EDMS 16:39 Basic Metabolic Profile Ordered. EDMS 16:39 Complete Blood Count Ordered. EDMS 16:39 Drug Eval Toxicology ED Only Ordered. EDMS 16:39 Ethyl Alcohol (ethanol) Ordered. EDMS 16:39 Liver Profile Ordered. EDMS 16:40 Salicylate Level Ordered. EDMS 16:40 Thyroid Stimulating Hormone Ordered. EDMS 16:40 ECG WITH READING ER PHYS+CARDIAG ordered. EDMS 17:41 REGULAR DIET PLASTIC SONI+DIET ordered. EDMS 18:47 Financial registration complete. gjb 19:08 Acetaminophen Level Reviewed. ml 19:08 Drug Eval Toxicology ED Only Reviewed. ml 19:08 Liver Profile Reviewed. ml 19:08 Salicylate Level Reviewed. ml 19:08 Basic Metabolic Profile Reviewed. ml 19:08 Complete Blood Count Reviewed. ml 19:08 Ethyl Alcohol (ethanol) Reviewed. ml 19:08 Thyroid Stimulating Hormone Reviewed. ml 19:34 Consult PFS/PSA/Investment Officer complete. ms 19:34 Consult PFS/PSA/Investment Officer: Patient's case requires discussion with on-call ms Psychiatrist complete. 19:34 PSA/PFS to call Nursing Hadoop Java Developer, to enter patient data [place] Safe [place] if patient ms involuntarily admitted or transferred for SI or HI complete. 20:14 [facility] Payment Agreement was scanned into Credible and attached to record. gjb 21:35 LORazepam 1 mg PO once ordered. mm11 04/04 07:59 T-Sheet-- Draft Copy was scanned into Credible and attached to record. seh 10:40 ECG/EKG was scanned into Credible and attached to record. gb Administered Medications: 04/03 17:36 Drug: LORazepam 1 mg [lorazepam 1 mg tablet (1 tabs)] Route: PO; ml6 22:01 Follow up: Response: Anxiety is improved [facility] 21:39 Not Given (Physician Discretion): LORazepam 1 mg PO once mm11 Signatures: Dispatcher [employer] EDIvonne Marlow MD MD ml Stone, Nilsa, PSA PSA ms Rashaad, Lena, Reg Reg Conner Diehl, DO DO mm11 Denise Patel RN RN jc4 Gregoria Walter,SET UP / OPERATOR SET UP / OPERATOR Magdalena Mccormick Sarah seh Lowe, Matthew RN ml6 The chart was reviewed and I authenticate all verbal orders and agree with the evaluation and treatment provided.Attachments: 20:14 [facility] Payment Agreement gjb 04/04 07:59 T-Sheet-- Draft Copy [facility] 10:40 ECG/EKG Chart Complete MTDD
== END 2016-04-03 22:01 | disposition home or self-care (01) ==
LOC: M ED 16:07
DX: F11.10 Opioid abuse, uncomplicated (principal); F32.1 Major depressive disorder, single episode, moderate; J45.909 Unspecified asthma, uncomplicated; Z79.899 Other long term (current) drug therapy; F17.210 Nicotine dependence, cigarettes, uncomplicated
CPT/HCPCS: 36415; 80048; 80076; 80306; 84443; 85027; 93005; 99285; G0480

== ENCOUNTER 2016-04-05 12:20 | Emergency (ER) | payer OTHER ==
[2016-04-05] MEDS ORDERED: cloNIDine 0.1 MG TAB As Ordered ONE (14:23)
--- NOTE | 2016-04-05 15:03 | EDDOCDS ---
Nurse's Notes [facility] Name: Scooby Chase Age: 20 yrs Sex: Male : 1995 Arrival Date: 04/05/2016 Time: 12:20 Bed OBSERVATION Private MD: Diagnosis: Opioid dependence with withdrawal Presentation: 04/05 12:28 Presenting complaint: Patient states: ' are you going to give me something for mk4 withdrawal?' pt states as I walk into room to triage,pt denies any s/i or H/I states he is coming of "oxys and a bunch of other stuff" pt alert and calm requesting me to find an iphone price checker for his cell phone, no tremors , noted heart rate 72 regular. Mental Health Triage Level: Level 1- Pt displays no suicidal or homicidal ideations and does not appear to be a danger to self or others. Adult Sepsis Screening: The patient does not have new or worsening altered mentation. Patient's respiratory rate is less than 22. Systolic blood pressure is greater than 100. Patient has a qSOFA score of 0- Negative Sepsis Screen. Suicide/Homicide risk assessment- the patient denies having any suicidal and/or homicidal ideations and does not present with any other emotional, behavioral or mental health complaints. 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 Transition of care: patient was not received from another setting of care. 12:28 Acuity: BATSHEVA Level 4 [facility] 12:28 Method Of Arrival: Ambulance 4 Triage Assessment: 12:31 General: Appears in no apparent distress. Pain: Denies pain. HIV screening NA for this 4 visit Offered previously. Historical: - Allergies: no known allergies; - Home Meds: 1. none - PMHx: Asthma; - PSHx: wisdom teeth extraction; - Social history: Smoking status: Patient states was never smoker of tobacco. No barriers to communication noted, The patient speaks fluent Belarusian, Patient uses chewing tobacco. - : The pt / caregiver states he / she is not on anticoagulants. Home medication list is obtained from the patient. - Exposure Risk Screening:: None identified. - Family history: Not pertinent. Screenin:35 Screening information is obtained from the patient. Fall risk: No risks identified. mk4 Assistance ADL's: requires no assistance with activities of daily living. Abuse/DV Screen: The patient / caregiver reports he/she is: not in a situation that causes fear, pain or injury. Nutritional screening: No deficits noted. Advance Directives: Currently, there is no health care proxy. There is no active DNR order. There is no living will. There is no Power of Ase Master Mechanic. Advance directive information has not previously been placed in an [facility] medical record. Further advance directive information is declined. home support is adequate. Referral is made to aden VALENZUELA. Assessment: 12:35 Neurological: Level of Consciousness is awake, alert, Oriented to person, place, time. mk4 13:14 General: Appears in no apparent distress, comfortable, Behavior is cooperative, mk4 pleasant, quiet, social insurance administrator in interviewing pt. Pain: Denies pain. 14:45 General: Appears in no apparent distress, comfortable, escorts in with pt mk4 denies needsd. 15:00 General: Appears in no apparent distress, comfortable, Behavior is cooperative, mk4 pleasant, Denies feeling ill. Neurological: Level of Consciousness is awake, alert. Respiratory: Airway is patent Respiratory effort is even, unlabored, Respiratory pattern is regular. Mental Health Eval: 14:05 Mental health consult is initiated at 13:00. 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 [facility] Behavioral Health: The patient is not an established patient of [facility] Behavioral Health. Referral Information: Evaluation referral is generated by the patient's psychiatrist Justin Castro([facility]) at [facility]. The patient was referred for evaluation because pt was seen at [facility] due to on-going opiate abuse. Dr. Castro contacted [facility] in [place] today with a possible bed later this evening. According to [facility] documentation, due to the uncertainty of how long it would take the DTS paperwork to be completed, pt was transferred to [facility] for safety until a bed is available in [facility]. Pt denies SI and HI upon arrival.... Subjective: The patients chief complaint is pt states, "apparently I'm here until I get a bed in [facility]." Admits he's been abusing opiates mostly Percocet and Vicodin(approximately 60 tablets per day, 30 tablets cooked, IV use and 30 crushed(snorted)for the past 7 months following a wisdom tooth extraction that resulted in a fractured jaw. He reports taking an unintentional Xanax OD on 04/03/[address] Prather was consulted and pt was deemed safe and discharged. Pt presents to ED with complaints of opiate withdrawal. Describes symptoms as "severe nausea, cold sweats, and poor appetite." He adamantly denies SI and HI, able to CFS. According to [facility] paperwork, pt denied current suicidal and homicidal thoughts, plans, or intent, although when asked, pt stated he did not want to talk about his suicidal thoughts that he was having, but denied wanting to to kill himself currently. Pt states, "I'm just wanting to get help with my withdrawal symptoms." Spoke to pt's LEATHA separately(Papito Altamirano, and James) regarding pt's safety. Both report they are able to monitor pt until a bed is available in in [facility] and report not having concerns regarding pt's safety. . Delusions are denied. Patient's mood is anxious, Hallucinations are denied. Mental Health history: abusing prescription drugs. cocaine. crack cocaine. narcotics. Mental Health Admissions: None. Current Outpatient Mental Health Services: 1st appt with Dr. Shook at [facility] today who felt pt required hospitalization due to his impulsivity. Current living environment is The patient currently lives in a [facility]. Patient presents to Emergency Department with the following symptoms within the past 2 weeks: decreased appetite, drug abuse, poor concentration, poor impulse control, relational problem, sleep disturbance - insomnia. Substance abuse: pt chews tobacco(1 can per week) . Substance abuse: Patient uses cocaine, Last used, one month ago . Patient uses opiates Type Used: Vicodin and Percocet(60 tablets per day). Mental status exam: Patients appearance is appropriate, Patient's behavior is cooperative, Speech is normal. Affect is flat. Mood is Hallucinations are denied. Appetite is poor. due to feeling nauseous Memory is good. Energy level is normal. Content of thought is normal. Thought process is intact. Cognitive level is oriented to person, place, time and situation Patient's insight is fair. Judgement is poor. Rapport with interviewer is good. Suicidal Ideation is denied. Homicidal ideation is denied. Disposition: Medically cleared for disposition by Amrik Duncan DO Psychiatric Consult is performed by phone with Dr Fritz Prather. [facility] Admission Criteria: Not Applicable. DSM-V Differential Diagnosis: Opioid withdrawal. Insurance Pre-Certification: Not Required. Narrative: According to Dr. Prather, pt is able to be discharged from [facility] and will be transported back to the [facility] where he will be on watch until a bed is available in [facility]. Referrals for outpt services was given at bedside and directed to follow up with [facility] in the am. Vital Signs: 12:31 BP 138 / 90; Pulse 72; Resp 18; Temp 97.6(T); Pulse Ox 98% on R/A; Weight 77.11 kg; mk4 Height 5 ft. 11 in. (180.34 cm); 15:00 BP 128 / 88; Pulse 72; Resp 18; Temp 98; Pulse Ox 98% on R/A; mk4 12:31 Body Mass Index 23.71 (77.11 kg, 180.34 cm) 4 Vitals: 12:31 Log In Time N/A - ambulance arrival. 4 ED Course: 12:21 Patient visited by John Graham Reg. lg 12:21 Patient moved to Waiting lg 12:23 Patient moved to [address] 12:30 Patient visited by Carlitos Gutierrez PCA. jlf 12:31 Triage Initiated mk4 12:34 Report received from rn - psych. triage level #1, no obs. req, \\T\\ this time. pjf 12:35 Amrik Duncan DO is Attending Physician. cs11 12:35 Patient visited by Amrik Duncan DO. cs11 12:35 The patient / caregiver is instructed regarding the plan of care and ED course. mk4 12:49 Patient visited by Noah Parr Security Aide. pjf 13:06 [facility] Payment Agreement was scanned into [employer] and attached to record. pm4 13:13 Patient visited by Noah Parr Security Aide. pjf 13:28 Patient visited by Noah Parr Security Aide. pjf 13:45 Patient visited by Noah Parr Security Aide. pjf 14:09 Patient moved to OBSERVATION cs11 14:59 PSA Outpatient Referrals was scanned into [employer] and attached to record. ml4 15:00 Other: [facility] documentation was scanned into [employer] and attached to record. ml4 15:00 No IV's were initiated during this patient's visit. No procedures done that require mk4 assistance. Administered Medications: 14:26 Drug: cloNIDine 0.1 mg [clonidine HCl 0.2 mg tablet (0.5 tabs)] Route: PO; mk4 Order Results: There are currently no results for this order. Outcome: 14:49 Discharge ordered by Provider. cs11 15:00 Discharge Assessment: Patient awake, alert and oriented x 3. No cognitive and/or mk4 functional deficits noted. Patient verbalized understanding of disposition instructions. Patient awake and alert. Discharge Assessment: patient administered narcotics - no. The following High Risk Discharge criteria are identified: None. Condition: good Condition: stable. No special radiology studies were completed. Property sent home with patient. 15:02 Patient left the ED. mk4 Signatures: John Graham, Reg Reg lg Noah Parr, Security Aide Securpjf Aden Sigala, PSA PSA ml4 Amrik Duncan, DO DO cs11 Mago Guerrier RN RN mk4 Carlitos Gutierrez, BRAZING MACHINE OPERATOR BRAZING MACHINE OPERATOR jlf Noah Stone, Reg Reg pm4 Corrections: (The following items were deleted from the chart) 13:16 13:14 General: Appears in no apparent distress, comfortable, Behavior is cooperative, mk4 pleasant, quiet, mk4 MTDD
--- NOTE | 2016-04-05 15:03 | EDDOCDS ---
Physician Documentation [facility] Name: Scooby Chase Age: 20 yrs Sex: Male : 1995 Arrival Date: 04/05/2016 Time: 12:20 Bed OBSERVATION Private MD: Disposition: 04/05/16 14:49 Discharged to Home/Self Care. Impression: Opioid dependence with withdrawal. - Condition is Stable. - Prescriptions for Clonidine 0.1 mg Oral Tablet - take 1 tablet by ORAL route every 12 hours; 30 tablet. - Medication Reconciliation, Local Pharmacy Hours form. - Follow up: Private Physician; When: As previously arranged. - Problem is an ongoing problem. - Symptoms have improved. Historical: - Allergies: no known allergies; - Home Meds: 1. none - PMHx: Asthma; - PSHx: wisdom teeth extraction; - Social history: Smoking status: Patient states was never smoker of tobacco. No barriers to communication noted, The patient speaks fluent Lithuanian, Patient uses chewing tobacco. - : The pt / caregiver states he / she is not on anticoagulants. Home medication list is obtained from the patient. - Exposure Risk Screening:: None identified. - Family history: Not pertinent. Vital Signs: 04/05 12:31 BP 138 / 90; Pulse 72; Resp 18; Temp 97.6(T); Pulse Ox 98% on R/A; Weight 77.11 kg / mk4 170 lbs; Height 5 ft. 11 in. (180.34 cm); 15:00 BP 128 / 88; Pulse 72; Resp 18; Temp 98; Pulse Ox 98% on R/A; mk4 12:31 Body Mass Index 23.71 (77.11 kg, 180.34 cm) mk4 MDM: 12:36 Consult PFS/PSA/Straw Hat Brusher ordered. cs11 12:59 Financial registration complete. pm4 13:00 Consult PFS/PSA/Straw Hat Brusher complete. ml4 13:06 [facility] Payment Agreement was scanned into [employer] and attached to record. pm4 14:08 cloNIDine 0.1 mg PO once ordered. cs11 14:59 PSA Outpatient Referrals was scanned into [employer] and attached to record. ml4 15:00 Other: [facility] documentation was scanned into [employer] and attached to record. ml4 Administered Medications: 14:26 Drug: cloNIDine 0.1 mg [clonidine HCl 0.2 mg tablet (0.5 tabs)] Route: PO; mk4 Signatures: Montserrat Sigala, PSA PSA ml4 Amrik Duncan, DO cs11 Mago Guerrier RN RN mk4 Noah Stone, Reg Reg pm4 The chart was reviewed and I authenticate all verbal orders and agree with the evaluation and treatment provided.Attachments: 13:06 [facility] Payment Agreement pm4 MTDD
--- NOTE | 2016-04-07 16:03 | EDDOCDS ---
Physician Documentation [facility] Name: Scooby Chase Age: 20 yrs Sex: Male : 1995 Arrival Date: 04/05/2016 Time: 12:20 Bed OBSERVATION Private MD: Disposition: 04/05/16 14:49 Discharged to Home/Self Care. Impression: Opioid dependence with withdrawal. - Condition is Stable. - Prescriptions for Clonidine 0.1 mg Oral Tablet - take 1 tablet by ORAL route every 12 hours; 30 tablet. - Medication Reconciliation, Local Pharmacy Hours form. - Follow up: Private Physician; When: As previously arranged. - Problem is an ongoing problem. - Symptoms have improved. Historical: - Allergies: no known allergies; - Home Meds: 1. none - PMHx: Asthma; - PSHx: wisdom teeth extraction; - Social history: Smoking status: Patient states was never smoker of tobacco. No barriers to communication noted, The patient speaks fluent Amharic, Patient uses chewing tobacco. - : The pt / caregiver states he / she is not on anticoagulants. Home medication list is obtained from the patient. - Exposure Risk Screening:: None identified. - Family history: Not pertinent. Vital Signs: 04/05 12:31 BP 138 / 90; Pulse 72; Resp 18; Temp 97.6(T); Pulse Ox 98% on R/A; Weight 77.11 kg / mk4 170 lbs; Height 5 ft. 11 in. (180.34 cm); 15:00 BP 128 / 88; Pulse 72; Resp 18; Temp 98; Pulse Ox 98% on R/A; mk4 12:31 Body Mass Index 23.71 (77.11 kg, 180.34 cm) mk4 MDM: 12:36 Consult PFS/PSA/Washtub Worker Helper ordered. cs11 12:59 Financial registration complete. pm4 13:00 Consult PFS/PSA/Washtub Worker Helper complete. ml4 13:06 [facility] Payment Agreement was scanned into [email or web address] and attached to record. pm4 14:08 cloNIDine 0.1 mg PO once ordered. cs11 14:59 PSA Outpatient Referrals was scanned into [email or web address] and attached to record. ml4 15:00 Other: [facility] documentation was scanned into [email or web address] and attached to record. ml4 04/06 10:09 T-Sheet-- Draft Copy was scanned into [email or web address] and attached to record. gb 10: PCR was scanned into [email or web address] and attached to record. gb Administered Medications: 04/05 14:26 Drug: cloNIDine 0.1 mg [clonidine HCl 0.2 mg tablet (0.5 tabs)] Route: PO; mk4 Signatures: Lena Neil, Reg Reg gb Montserrat Sigala, PSA PSA ml4 Amrik Duncan, DO cs11 Mago Guerrier RN RN mk4 Noah Stone, Reg Reg pm4 The chart was reviewed and I authenticate all verbal orders and agree with the evaluation and treatment provided.Attachments: 13:06 [facility] Payment Agreement pm4 04/06 10:09 T-Sheet-- Draft Copy Chart Complete MTDD
--- NOTE | 2016-04-07 16:03 | EDDOCDS ---
Physician Documentation [facility] Name: Scooby Chase Age: 20 yrs Sex: Male : 1995 Arrival Date: 04/05/2016 Time: 12:20 Bed OBSERVATION Private MD: Disposition: 04/05/16 14:49 Discharged to Home/Self Care. Impression: Opioid dependence with withdrawal. - Condition is Stable. - Prescriptions for Clonidine 0.1 mg Oral Tablet - take 1 tablet by ORAL route every 12 hours; 30 tablet. - Medication Reconciliation, Local Pharmacy Hours form. - Follow up: Private Physician; When: As previously arranged. - Problem is an ongoing problem. - Symptoms have improved. Historical: - Allergies: no known allergies; - Home Meds: 1. none - PMHx: Asthma; - PSHx: wisdom teeth extraction; - Social history: Smoking status: Patient states was never smoker of tobacco. No barriers to communication noted, The patient speaks fluent Polish, Patient uses chewing tobacco. - : The pt / caregiver states he / she is not on anticoagulants. Home medication list is obtained from the patient. - Exposure Risk Screening:: None identified. - Family history: Not pertinent. Vital Signs: 04/05 12:31 BP 138 / 90; Pulse 72; Resp 18; Temp 97.6(T); Pulse Ox 98% on R/A; Weight 77.11 kg / mk4 170 lbs; Height 5 ft. 11 in. (180.34 cm); 15:00 BP 128 / 88; Pulse 72; Resp 18; Temp 98; Pulse Ox 98% on R/A; mk4 12:31 Body Mass Index 23.71 (77.11 kg, 180.34 cm) mk4 MDM: 12:36 Consult PFS/PSA/Machine Pack Assembler ordered. cs11 12:59 Financial registration complete. pm4 13:00 Consult PFS/PSA/Machine Pack Assembler complete. ml4 13:06 [facility] Payment Agreement was scanned into [employer] and attached to record. pm4 14:08 cloNIDine 0.1 mg PO once ordered. cs11 14:59 PSA Outpatient Referrals was scanned into [employer] and attached to record. ml4 15:00 Other: [facility] documentation was scanned into [employer] and attached to record. ml4 04/06 10:09 T-Sheet-- Draft Copy was scanned into [employer] and attached to record. gb 10: PCR was scanned into [employer] and attached to record. gb Administered Medications: 04/05 14:26 Drug: cloNIDine 0.1 mg [clonidine HCl 0.2 mg tablet (0.5 tabs)] Route: PO; mk4 Signatures: Lena Neil, Reg Reg gb Montserrat Sigala, PSA PSA ml4 Amrik Duncan, DO cs11 Mago Guerrier RN RN mk4 Noah Stone, Reg Reg pm4 The chart was reviewed and I authenticate all verbal orders and agree with the evaluation and treatment provided.Attachments: 13:06 [facility] Payment Agreement pm4 04/06 10:09 T-Sheet-- Draft Copy Chart Complete MTDD
--- NOTE | 2016-04-07 16:03 | EDDOCDS ---
Nurse's Notes [facility] Name: Scooby Chase Age: 20 yrs Sex: Male : 1995 Arrival Date: 04/05/2016 Time: 12:20 Bed OBSERVATION Private MD: Diagnosis: Opioid dependence with withdrawal Presentation: 04/05 12:28 Presenting complaint: Patient states: ' are you going to give me something for mk4 withdrawal?' pt states as I walk into room to triage,pt denies any s/i or H/I states he is coming of "oxys and a bunch of other stuff" pt alert and calm requesting me to find an iphone acute care clinical nurse specialist for his cell phone, no tremors , noted heart rate 72 regular. Mental Health Triage Level: Level 1- Pt displays no suicidal or homicidal ideations and does not appear to be a danger to self or others. Adult Sepsis Screening: The patient does not have new or worsening altered mentation. Patient's respiratory rate is less than 22. Systolic blood pressure is greater than 100. Patient has a qSOFA score of 0- Negative Sepsis Screen. Suicide/Homicide risk assessment- the patient denies having any suicidal and/or homicidal ideations and does not present with any other emotional, behavioral or mental health complaints. 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 Transition of care: patient was not received from another setting of care. 12:28 Acuity: BATSHEVA Level 4 [facility] 12:28 Method Of Arrival: Ambulance 4 Triage Assessment: 12:31 General: Appears in no apparent distress. Pain: Denies pain. HIV screening NA for this 4 visit Offered previously. Historical: - Allergies: no known allergies; - Home Meds: 1. none - PMHx: Asthma; - PSHx: wisdom teeth extraction; - Social history: Smoking status: Patient states was never smoker of tobacco. No barriers to communication noted, The patient speaks fluent Frisian, Patient uses chewing tobacco. - : The pt / caregiver states he / she is not on anticoagulants. Home medication list is obtained from the patient. - Exposure Risk Screening:: None identified. - Family history: Not pertinent. Screenin:35 Screening information is obtained from the patient. Fall risk: No risks identified. mk4 Assistance ADL's: requires no assistance with activities of daily living. Abuse/DV Screen: The patient / caregiver reports he/she is: not in a situation that causes fear, pain or injury. Nutritional screening: No deficits noted. Advance Directives: Currently, there is no health care proxy. There is no active DNR order. There is no living will. There is no Power of Customer Services Supervisor. Advance directive information has not previously been placed in an [facility] medical record. Further advance directive information is declined. home support is adequate. Referral is made to aden VALENZUELA. Assessment: 12:35 Neurological: Level of Consciousness is awake, alert, Oriented to person, place, time. mk4 13:14 General: Appears in no apparent distress, comfortable, Behavior is cooperative, mk4 pleasant, quiet, licensed master social worker in interviewing pt. Pain: Denies pain. 14:45 General: Appears in no apparent distress, comfortable, escorts in with pt mk4 denies needsd. 15:00 General: Appears in no apparent distress, comfortable, Behavior is cooperative, mk4 pleasant, Denies feeling ill. Neurological: Level of Consciousness is awake, alert. Respiratory: Airway is patent Respiratory effort is even, unlabored, Respiratory pattern is regular. Mental Health Eval: 14:05 Mental health consult is initiated at 13:00. 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 [facility] Behavioral Health: The patient is not an established patient of [facility] Behavioral Health. Referral Information: Evaluation referral is generated by the patient's psychiatrist Justin Castro([facility]) at [facility]. The patient was referred for evaluation because pt was seen at [facility] due to on-going opiate abuse. Dr. Castro contacted [facility] in [place] today with a possible bed later this evening. According to [facility] documentation, due to the uncertainty of how long it would take the DTS paperwork to be completed, pt was transferred to [facility] for safety until a bed is available in [facility]. Pt denies SI and HI upon arrival.... Subjective: The patients chief complaint is pt states, "apparently I'm here until I get a bed in [facility]." Admits he's been abusing opiates mostly Percocet and Vicodin(approximately 60 tablets per day, 30 tablets cooked, IV use and 30 crushed(snorted)for the past 7 months following a wisdom tooth extraction that resulted in a fractured jaw. He reports taking an unintentional Xanax OD on 04/03/[address] Prather was consulted and pt was deemed safe and discharged. Pt presents to ED with complaints of opiate withdrawal. Describes symptoms as "severe nausea, cold sweats, and poor appetite." He adamantly denies SI and HI, able to CFS. According to [facility] paperwork, pt denied current suicidal and homicidal thoughts, plans, or intent, although when asked, pt stated he did not want to talk about his suicidal thoughts that he was having, but denied wanting to to kill himself currently. Pt states, "I'm just wanting to get help with my withdrawal symptoms." Spoke to pt's LEATHA separately(Papito Altamirano, and James) regarding pt's safety. Both report they are able to monitor pt until a bed is available in in [facility] and report not having concerns regarding pt's safety. . Delusions are denied. Patient's mood is anxious, Hallucinations are denied. Mental Health history: abusing prescription drugs. cocaine. crack cocaine. narcotics. Mental Health Admissions: None. Current Outpatient Mental Health Services: 1st appt with Dr. Shook at [facility] today who felt pt required hospitalization due to his impulsivity. Current living environment is The [facility]. Patient presents to Emergency Department with the following symptoms within the past 2 weeks: decreased appetite, drug abuse, poor concentration, poor impulse control, relational problem, sleep disturbance - insomnia. Substance abuse: pt chews tobacco(1 can per week) . Substance abuse: Patient uses cocaine, Last used, one month ago . Patient uses opiates Type Used: Vicodin and Percocet(60 tablets per day). Mental status exam: Patients appearance is appropriate, Patient's behavior is cooperative, Speech is normal. Affect is flat. Mood is Hallucinations are denied. Appetite is poor. due to feeling nauseous Memory is good. Energy level is normal. Content of thought is normal. Thought process is intact. Cognitive level is oriented to person, place, time and situation Patient's insight is fair. Judgement is poor. Rapport with interviewer is good. Suicidal Ideation is denied. Homicidal ideation is denied. Disposition: Medically cleared for disposition by Amrik Duncan DO Psychiatric Consult is performed by phone with Dr Fritz Prather. [facility] Admission Criteria: Not Applicable. DSM-V Differential Diagnosis: Opioid withdrawal. Insurance Pre-Certification: Not Required. Narrative: According to Dr. Prather, pt is able to be discharged from [facility] and will be transported back to the [facility] where he will be on watch until a bed is available in [facility]. Referrals for outpt services was given at bedside and directed to follow up with [facility] in the am. Vital Signs: 12:31 BP 138 / 90; Pulse 72; Resp 18; Temp 97.6(T); Pulse Ox 98% on R/A; Weight 77.11 kg; mk4 Height 5 ft. 11 in. (180.34 cm); 15:00 BP 128 / 88; Pulse 72; Resp 18; Temp 98; Pulse Ox 98% on R/A; mk4 12:31 Body Mass Index 23.71 (77.11 kg, 180.34 cm) 4 Vitals: 12:31 Log In Time N/A - ambulance arrival. 4 ED Course: 12:21 Patient visited by John Graham Reg. lg 12:21 Patient moved to Waiting lg 12:23 Patient moved to [address] 12:30 Patient visited by Carlitos Gutierrez PCA. jlf 12:31 Triage Initiated mk4 12:34 Report received from rn - psych. triage level #1, no obs. req, \\T\\ this time. pjf 12:35 Amrik Duncan DO is Attending Physician. cs11 12:35 Patient visited by Amrik Duncan DO. cs11 12:35 The patient / caregiver is instructed regarding the plan of care and ED course. mk4 12:49 Patient visited by Noah Parr Security Aide. pjf 13:06 [facility] Payment Agreement was scanned into [employer]) and attached to record. pm4 13:13 Patient visited by Noah Parr Security Aide. pjf 13:28 Patient visited by Noah Parr Security Aide. pjf 13:45 Patient visited by Noah Parr Security Aide. pjf 14:09 Patient moved to OBSERVATION cs11 14:59 PSA Outpatient Referrals was scanned into [employer] and attached to record. ml4 15:00 Other: [facility] documentation was scanned into [employer] and attached to record. ml4 15:00 No IV's were initiated during this patient's visit. No procedures done that require mk4 assistance. 04/06 10: T-Sheet-- Draft Copy was scanned into [employer]) and attached to record. zaida 10: PCR was scanned into [employer]) and attached to record. gb Administered Medications: 04/05 14:26 Drug: cloNIDine 0.1 mg [clonidine HCl 0.2 mg tablet (0.5 tabs)] Route: PO; mk4 Order Results: There are currently no results for this order. Outcome: 14:49 Discharge ordered by Provider. cs11 15:00 Discharge Assessment: Patient awake, alert and oriented x 3. No cognitive and/or mk4 functional deficits noted. Patient verbalized understanding of disposition instructions. Patient awake and alert. Discharge Assessment: patient administered narcotics - no. The following High Risk Discharge criteria are identified: None. Condition: good Condition: stable. No special radiology studies were completed. Property sent home with patient. 15:02 Patient left the ED. mk4 Signatures: Lena Neil, Reg Reg gb John Graham, Reg Reg lg Noah Parr, Security Aide Securpjf Aden Sigala, PSA PSA ml4 Amrik Duncan, DO DO cs11 Mago Guerrier, RN RN mk4 Carlitos Gutierrez, MATCHBOOK ASSEMBLER MATCHBOOK ASSEMBLER jlf Noah Stone, Reg Reg pm4 Corrections: (The following items were deleted from the chart) 13:16 13:14 General: Appears in no apparent distress, comfortable, Behavior is cooperative, mk4 pleasant, quiet, mk4 Chart Complete MTDD
== END 2016-04-05 15:02 | disposition home or self-care (01) ==
LOC: M ED 12:20
DX: F11.23 Opioid dependence with withdrawal (principal); J45.909 Unspecified asthma, uncomplicated